=== PATIENT | female | born 1960 | race Caucasian/White ===

== ENCOUNTER 2023-01-08 11:02 | Emergency (ER) | payer OTHER, MEDICAID, SELFPAY ==
[2023-01-08] VITALS (28 sets, daily range): BP systolic 113–129; BP diastolic 56–74; PULSE 49–120; RESP 10–28; TEMP 36.8; O2SAT 92–97
--- NOTE | 2023-01-08 11:00 | DI.RAD_ITS ---
Exam(s) XR PORTABLE CHEST AP EXAM: XR PORTABLE CHEST AP CLINICAL HISTORY: Chest Pain. TECHNIQUE: 2D digital imaging was performed. COMPARISON: No exams were available for comparison FINDINGS: Single AP portable view. Unipolar left subclavian pacemaker noted. Lead tip is in right ventricle. Heart size is upper normal. The mediastinum is not widened. Lungs are clear. No infiltrates nor obvious pleural effusions. No pulmonary edema. IMPRESSION: No acute pulmonary findings on this single AP portable view of the chest. DATA REPOSITORY: RADIATION DOSE DELIVERED:
--- NOTE | 2023-01-08 11:00 | RT.EKG_ITS ---
APPROVED REPORT Exam: Resting ECG Reason for Exam: defib fired, palpitations Patient Location: E HR:78 bpm ECG Measurements Heart Rate 78 AXIS IA 180 P 29 QRSd 140 QRS -11 QT 472 T 61 QTc 496 Conclusion Sinus rhythm...normal P axis, V-rate 60- 99 IVCD, consider LBBB...QRSd>120, notch/slur R I aVL V5-6 I have reviewed and interpreted ECG and agree with software generated interpretation.
[2023-01-08 11:41] LABS: Abs Immature Grans 0.02 10^3/uL (0.0-0.06); Absolute Basophil Count 0.04 10^3/uL (0.0-0.2); Absolute Eosinophil Count 0.07 10^3/uL (0.0-0.7); Absolute Lymphocyte Count 2.08 10^3/uL (1.2-3.4); Absolute Monocyte Count 0.62 10^3/uL (0.1-0.8); Absolute Neutrophil Count 3.75 10^3/uL (1.2-6.7); Basophils % 0.6; Eosinophils % 1.1; HCT 46.7 % (36.0-46.0); HGB 15.3 g/dL (11.2-15.7); Immature Grans % 0.3; Lymphocytes % 31.6; MCH 29.9 pg (27.0-33.0); MCHC 32.8 % (32.0-36.0); MCV 91 fL (80-95); MPV 12.4 fL (8.0-11.0); Monocytes % 9.4; Platelet Count 208 10^3/uL (130-400); RBC 5.12 10^6/uL (3.93-5.22); RDW 13.3 % (11.7-14.6); RDW-SD 44.8 fL; WBC 6.58 10^3/uL (4.4-10.8)
--- NOTE | 2023-01-08 11:43 | ED.GENADUL_ITS ---
Discharge Plan Disposition Patient Disposition: Home Condition: Stable Discharge Details Clinical Impression: ICD (implantable cardioverter-defibrillator) discharge Primary Care Provider: Janey Rangel ED Provider: Malinda Mccormick Home Meds and New Rx's Prescriptions: Continued metformin 500 mg tablet 1,000 mg PO BID Patient Comments: take 2 tablets by mouth every morning and 2 tablets nightly atorvastatin 20 mg tablet 20 mg PO DAILY Patient Comments: take 1 tablet by mouth EVERY EVENING sotalol [Sotalol AF] 120 mg tablet 120 mg PO BID Patient Comments: take 1 tablet by mouth twice a day spironolactone 25 mg tablet 12.5 mg PO DAILY Patient Comments: take 1/2 tablet by mouth once daily bisoprolol fumarate 5 mg tablet 2.5 mg PO DAILY Patient Comments: take 1/2 tablet by mouth once daily potassium chloride 20 mEq tablet,ER particles/crystals 20 meq PO DAILY Patient Comments: take 1 tablet by mouth once daily furosemide 20 mg tablet 20 mg PO BID Patient Comments: take 1 tablet by mouth twice a day Jardiance 10 mg tablet 10 mg PO DAILY Patient Comments: take 1 tablet by mouth once daily Entresto 24-26 mg tablet 1 tab PO DAILY Patient Comments: take 1 tablet by mouth twice a day Discharge Instructions Instructions: Premature Ventricular Contractions (ED) Additional Instructions: The tooth grinder recommends that you increase your bisoprolol to 5 mg a day. Please follow-up with [facility] cardiology within the next week. Follow up with primary care provider in 3-5 days. Return to ED sooner if any worsening or concerns. Increase oral fluids. Referrals: Elijah Mcmahan MD [MD CONSULTING PHYSICIAN] - 1 week Medical Decision Making 62-year-old female presents to the ER with a chief complaint of feeling as if her defibrillator went off prior to arrival. Patient states that she had just gone down and up some stairs and where she felt her defibrillator go off she den ies any chest pain she does report some fatigue and did have some dizziness after the defibrillation. That has since resolved. She has had this defibrillator for approximately 3 years. She does have a history of CHF, high cholesterol, hypertension diabetes. Initially irregular rhythm with PVCs, pacemaker was interrogated by staff rn. Patient has no chest pain. Cardiac work-up ordered. [employer] interrogation report received did show an episode of V. tach which was defibrillated. CBC largely within normal limits, rest of the labs are pending at this time. Initial troponin slightly elevated at 87, CBC within normal limits, 1228: [facility] transfer center called to consult with cardiology. 1330: Spoke with Dr. Adhikari with [facility] cardiology I did discuss the patient case in details with him he recommends for the patient to take it easy make sure she is taking her bisoprolol and close follow-up with lathe tender and either Dr. Mcmahan or himself in the upcoming future to discuss possible ablation. No further recommendations were given. 1349: Spoke again with Dr. Adhikari who recommends an increase of the bisoprolol to 5 mg daily, will instruct patient. Repeat troponin has doubled it is now 165 proBNP is 835 I will notify [facility] cardiology of the repeat troponin. 1419: [facility] transfer center contacted. 1520: Spoke again with cardiology at [facility] regarding the elevated troponin of 165 verbalized understanding. This is most likely due to the defibrillator discharge however it is not completely certain patient does not have any ischemic type symptoms no chest pain no dizziness no shortness of breath while being here in the ER. She has been observed for over 4 hours. Patient will be discharged. I did instruct her to increase her bisoprolol to 5 mg daily. This text was generated using [employer] dictation system, please disregard any oddities of phrase or misspellings. Medical Records Medical records reviewed: Yes I reviewed the patient's medical records. HPI General Mode of arrival: EMS . Date/Time Provider Initiated Documentation: 01/08/23 11:07 . Limitations to Documentation: no limitations . Information obtained by: patient, EMS, RN notes reviewed and old records reviewed . HPI Narrative: 62-year-old female presents to the ER with a chief complaint of feeling as if her defibrillator went off prior to arrival. Patient states that she had just gone down and up some stairs and where she felt her defibrillator go off she denies any chest pain she does report some fatigue and did have some dizziness after the defibrillation. That has since resolved. She has had this defibrillator for approximately 3 years. She does have a history of CHF, high cholesterol, hypertension diabetes. Related Data Home Medications Medication Instructions Recorded Confirmed atorvastatin 20 mg tablet 20 mg PO DAILY 01/08/23 01/08/23 bisoprolol fumarate 5 mg tablet 2.5 mg PO DAILY 01/08/23 01/08/23 empagliflozin 10 mg tablet 10 mg PO DAILY 01/08/23 01/08/23 (Jardiance) furosemide 20 mg tablet 20 mg PO BID 01/08/23 01/08/23 metformin 500 mg tablet 1,000 mg PO BID 01/08/23 01/08/23 potassium chloride 20 mEq 20 meq PO DAILY 01/08/23 01/08/23 tablet,extended release(part/cryst) sacubitril 24 mg-valsartan 26 mg 1 tab PO DAILY 01/08/23 01/08/23 tablet (Entresto) sotalol 120 mg tablet (Sotalol AF) 120 mg PO BID 01/08/23 01/08/23 spironolactone 25 mg tablet 12.5 mg PO DAILY 01/08/23 01/08/23 Allergies Allergy/AdvReac Type Severity Reaction Status Date / Time adhesive tape AdvReac Unverified 01/08/23 11:20 General Stated Complaint: Arrhythmia MAICOL: 3 Review of Systems All systems reviewed & are unremarkable except as noted in HPI and below Cardiovascular Cardiovascular: Denies chest pain and Reports irregular heart rhythm PFSH All Active Problems (Updated 01/08/23 @ 15:12 by Malinda Mccormick NP) ICD (implantable cardioverter-defibrillator) discharge (Acute) Social History Smoking/Tobacco Use Status: Never Smoking risk assessment performed?: Yes Alcohol Intake: never Substance use type: does not use Exam Narrative Exam Narrative: Constitutional: Alert and oriented x3. Appears stated age. Normal body habitus. Head: Normocephalic, no trauma. Eyes: Pupils PERRL, Red reflex noted, EOM's intact. Eyelids symmetrical without lesions, discharge, or swelling. ENT: Bilateral TM's WNL, External ear normal to inspection, no mastoid TTP, swelling, or erythema, Nasal turbinates WNL, no nasal discharge. Normal dentition, Posterior pharynx WNL, no exudate. Chest: RRR, Normal S1, S2, distal pulses intact. Resp: Lungs clear to auscultation bilaterally, no wheezes, rales, or rhonchi. Abdomen: Soft, non-distended, Normoactive bowel sounds all 4 quads. Musculoskeletal: Normal gait, 5/5 strength to all four extremities. Skin: No suspicious rashes or lesions. Capillary refill less than 2 sec. Neurologic: Cranial nerves II-XII intact. Alert and oriented x 3. Motor: No deficits noted. Sensory: Intact bilaterally all 4 extremities. Reflexes: DTR's intact bilaterally.. Hematologic/Lymphatic: No ecchymosis, no lymphadenopathy. Course Vital Signs Vital signs: Vital Signs Temperature 36.8 C 01/08/23 11:24 Pulse 54 L 01/08/23 11:24 Respiratory Rate 18 01/08/23 11:24 Blood Pressure 129/58 L 01/08/23 11:24 Pulse Oximetry 94 01/08/23 11:24 Temperature 36.8 C 01/08/23 11:24 Temperature Source Oral 01/08/23 11:24 Pulse 54 L 01/08/23 11:24 Respiratory Rate 18 01/08/23 11:24 Respiratory Effort Normal, Non-Labored 01/08/23 11:19 Blood Pressure 129/58 L 01/08/23 11:24 Pulse Oximetry 94 01/08/23 11:24 Oxygen Delivery Method Room Air 01/08/23 11:24 Oxygen Flow Rate 0 01/08/23 11:24 Lab/Test Results Lab/Test Results: Laboratory Tests Range/Units 01/08/23 11:26 WBC (4.4-10.8) 10^3/uL 6.58 RBC (3.93-5.22) 10^6/uL 5.12 Hgb (11.2-15.7) g/dL 15.3 Hct (36.0-46.0) % 46.7 H MCV (80-95) fL 91 MCH (27.0-33.0) pg 29.9 MCHC (32.0-36.0) % 32.8 RDW (11.7-14.6) % 13.3 Plt Count (130-400) 10^3/uL 208 MPV (8.0-11.0) fL 12.4 H Immature Gran % 0.3 Neutrophils % 57.0 Lymphocytes % 31.6 Monocytes % 9.4 Eosinophils % 1.1 Basophils % 0.6 Nucleated RBC % (0.0-0.3) % 0.0 Absolute Neutrophils (1.2-6.7) 10^3/uL 3.75 Absolute Lymphocytes (1.2-3.4) 10^3/uL 2.08 Absolute Monocytes (0.1-0.8) 10^3/uL 0.62 Absolute Eosinophils (0.0-0.7) 10^3/uL 0.07 Absolute Basophils (0.0-0.2) 10^3/uL 0.04
[2023-01-08 12:02] LABS: ALT 36 U/L (14-59); AST 17 U/L (15-37); Albumin 4.6 g/dL (3.4-5.0); Alkaline Phosphatase 57 U/L (46-116); Anion Gap 13.3 mmol/L (3-11); BUN 17 mg/dL (7-18); CO2 21.7 mmol/L (21.0-32.0); CREATININE 0.9 mg/dL (0.55-1.02); Calcium 9.9 mg/dL (8.5-10.1); Chloride 106 mmol/L (98-107); Estimated GFR 71.39 (mL/min/1.73m2); Glucose 168 mg/dL (74-106); Magnesium 2.1 mg/dL (1.8-2.4); Potassium 4.3 mmol/L (3.5-5.1); Sodium 141 mmol/L (136-145); Total Protein 8.2 g/dL (6.4-8.2)
[2023-01-08 12:07] LABS: Troponin I 87 ng/L (<or=60)
--- NOTE | 2023-01-08 14:00 | RT.EKG_ITS ---
APPROVED REPORT Exam: Resting ECG Reason for Exam: chest pain Patient Location: E HR:72 bpm ECG Measurements Heart Rate 72 AXIS ND 184 P 8 QRSd 133 QRS -24 QT 460 T 53 QTc 483 Conclusion Sinus rhythm...normal P axis, V-rate 60- 99 Ventricular premature complex...V complex w/ short R-R interval Left bundle branch block...QRSd>120, broad/notched R I have reviewed and interpreted ECG and agree with software generated interpretation.
[2023-01-08 14:11] LABS: Troponin I 165 ng/L (<or=60)
[2023-01-08 14:12] LABS: NT-proBNP 835 pg/mL (<300)
== END 2023-01-08 15:40 | disposition home or self-care (01) ==
PROVIDERS: Emergency Provider Registered Nurse Emergency; PCP Nurse Practitioner Family
DX: T82.897A Other specified complication of cardiac prosthetic devices, implants and grafts, initial encounter (principal); R53.83 Other fatigue; R42 Dizziness and giddiness; I49.3 Ventricular premature depolarization; I11.0 Hypertensive heart disease with heart failure; I50.9 Heart failure, unspecified; E11.9 Type 2 diabetes mellitus without complications; R77.8 Other specified abnormalities of plasma proteins; Z79.84 Long term (current) use of oral hypoglycemic drugs; Y83.8 Other surgical procedures as the cause of abnormal reaction of the patient, or of later complication, without mention of misadventure at the time of the procedure
CPT/HCPCS: 80053; 93005; 99283; 71045; 83735; 83880; 84484; 85025; 93010

== ENCOUNTER 2023-02-10 09:26 | Emergency (ER) | payer OTHER, MEDICAID, SELFPAY ==
[2023-02-10] VITALS (24 sets, daily range): BP systolic 99–127; BP diastolic 57–78; PULSE 53–85; RESP 9–25; TEMP 36.9; O2SAT 94–97
--- NOTE | 2023-02-10 09:15 | RT.EKG_ITS ---
APPROVED REPORT Exam: Resting ECG Reason for Exam: CHEST PAIN Patient Location: E HR:71 bpm ECG Measurements Heart Rate 71 AXIS ND 194 P 46 QRSd 131 QRS -37 QT 472 T 22 QTc 490 Conclusion Sinus rhythm...normal P axis, V-rate 60- 99 Left bundle branch block...QRSd>120, broad/notched R Left bundle branch block pattern with left axis deviation and normal sinus rhythm at a rate of 72. N o signs of LVH based on voltage criteria. Not meeting Sgarbossa criteria. Multiple PVCs. Appears s imilar to prior dated last month. Not meeting Sgarbossa criteria nor modified Escobedo criteria for isc hemia.
--- NOTE | 2023-02-10 09:30 | DI.RAD_ITS ---
Exam(s) XR PORTABLE CHEST AP EXAM: XR PORTABLE CHEST AP CLINICAL HISTORY: Chest pain TECHNIQUE: 2D digital imaging was performed. COMPARISON: CR XR PORTABLE CHEST AP from 01/08/2023 FINDINGS: Pacemaker noted. LUNGS: Clear. No pleural abnormality seen. HEART: Normal size. AORTA: Normal diameter. BONES: Unremarkable for age. Soft tissues: Unremarkable. IMPRESSION: No acute findings. DATA REPOSITORY: RADIATION DOSE DELIVERED:
--- NOTE | 2023-02-10 09:31 | W.ED.GENAD ---
"Discharge Plan Disposition Patient Disposition: Home Discharge Details Clinical Impression: ICD (implantable cardioverter-defibrillator) in place, Lightheadedness, Wide-complex tachycardia Primary Care Provider: Janey Rangel ED Provider: Jamie Ledezma Home Meds and New Rx's Prescriptions: New sotalol 160 mg tablet 160 mg PO BID Qty: 60 0RF Continued metformin 500 mg tablet 1,000 mg PO BID Patient Comments: take 2 tablets by mouth every morning and 2 tablets nightly atorvastatin 20 mg tablet 20 mg PO DAILY Patient Comments: take 1 tablet by mouth EVERY EVENING spironolactone 25 mg tablet 12.5 mg PO DAILY Patient Comments: take 1/2 tablet by mouth once daily bisoprolol fumarate 5 mg tablet 2.5 mg PO DAILY Patient Comments: take 1/2 tablet by mouth once daily potassium chloride 20 mEq tablet,ER particles/crystals 20 meq PO DAILY Patient Comments: take 1 tablet by mouth once daily furosemide 20 mg tablet 20 mg PO BID Patient Comments: take 1 tablet by mouth twice a day Jardiance 10 mg tablet 10 mg PO DAILY Patient Comments: take 1 tablet by mouth once daily Entresto 24-26 mg tablet 1 tab PO DAILY Patient Comments: take 1 tablet by mouth twice a day Changed sotalol [Sotalol AF] 120 mg tablet 160 mg PO BID Qty: 0 0RF Patient Comments: take 1 tablet by mouth twice a day Discharge Instructions Additional Instructions: You were seen in the emergency department after your ICD shock. The electrophysiology team at [facility] advised increasing your sotalol dose up to 160 mg twice daily. If you develop chest pain or have another shock please return to the emergency department. Please call your electrophysiology team for follow-up next week. Your electrophysiology team will try to move up your ablation scheduled for this summer. Your blood work shows that your kidneys are working well. Discharge Data Discharge Date/Time-TO BE ENTERED AT DEPARTURE: 02/10/23 12:08 Medical Decision Making This is an overall well-appearing normothermic and not tachycardic 62-year-old female with a history of ischemic cardiomyopathy and [employer] ICD now status post shock concerning for recurrent VT despite sotalol therapy. Patient is not markedly fluid overloaded and has only had 1 pound of unintentional weight gain. Anticipate checking basic labs and touching base with electrophysiology at [facility]. Chart review [facility] indicates patient is scheduled for ablation this summer. Given her recurrent episode of ICD shock I am concerned for possibility of recurrent VT which was terminated. We will interrogate her pacemaker. We will check for any acute electrolyte abnormalities and correct these as needed. No persistent chest pain to suggest ACS. No cough to suggest pneumonia. No black nor bloody stools to suggest acute GI bleed. Will reassess following labs. 10:35 AM CBC lacks anemia and thrombocytopenia and leukocytosis. 10:55 AM I spoke with Marimar from [employer] who reviewed the pacemaker interrogation. Patient had rapid onset of a heart rate of 188 which was irregular and denies almost likely VTE. Pacemaker attempted to pace the patient twice and subsequently she received a 40 J shock. Cardiac troponin mildly elevated at 56 ng/L. Basic metabolic panel with mild anion gap but only mild hyperglycemia so doubt DKA based on normal bicarbonate. Calcium within normal limits. proBNP mildly elevated at 571 pg/mL but improved compared to prior. I obtained patient's verbal consent to have her ICD interrogated with the [employer] device connected to the [employer] network as unfortunately a secure connection was not available given recent upgrade to the [employer] network locally. I explained the risks of her permission being transmitted on securely. She understood these risks and consented to ICD interrogation over the unsecured Wi-Fi network. 1121am I spoke to Dr. Cabello from electrophysiology at [facility] she advised increasing sotol to 160 mg BID. She will speak with Dr. Mcmahan and asked him to try to move her ablation up. 12 PM I met with the patient and explained recommendation. I [facility] in [facility]. Chronic conditions affecting the care of the patient: Ischemic cardiomyopathy History obtained from an outside historian: Paramedics External record review: [facility] EMR Diagnostic interpretations performed by me: [Per my independent interpretation chest x-ray shows:] No obvious cardiopulmonary process [Per my independent interpretation EKG shows:] Left bundle branch block pattern with left axis deviation and normal sinus rhythm at a rate of 72. No signs of LVH based on voltage criteria. Not meeting Sgarbossa criteria. Multiple PVCs. Appears similar to prior dated last month. Not meeting Sgarbossa criteria nor modified Escobedo criteria for ischemia. Medications: N/A Social determinants of health affecting disposition: N/A Management discussed with: [facility] cards Treatment/interventions considered: no recurrent shocks in the ED Response to therapies provided: N/A HPI General Date/Time Provider Initiated Documentation: 02/10/23 09:31. HPI Narrative: This is a 62-year-old female arriving via EMS in the setting of a shock from her ICD. Patient reports that she was in her usual state of health earlier this morning. She said that while she was waiting for the elevator she felt lightheaded and then her internal defibrillator went off. She received only 1 shock. She denies any unintentional weight gain beyond 1 pound. She has been adherent with her home medications. She is on outpatient sotalol therapy 120 mg twice daily. She denies chest pain dysuria and frequency. She has had no cough nor any shortness of breath. She has taken no falls. She did not syncopized today nor hit her head. She denies abdominal pain dysuria and frequency. Related Data Home Medications Medication Instructions Recorded Confirmed atorvastatin 20 mg tablet 20 mg PO DAILY 01/08/23 01/08/23 bisoprolol fumarate 5 mg tablet 2.5 mg PO DAILY 01/08/23 01/08/23 empagliflozin 10 mg tablet 10 mg PO DAILY 01/08/23 01/08/23 (Jardiance) furosemide 20 mg tablet 20 mg PO BID 01/08/23 01/08/23 metformin 500 mg tablet 1,000 mg PO BID 01/08/23 01/08/23 potassium chloride 20 mEq 20 meq PO DAILY 01/08/23 01/08/23 tablet,extended release(part/cryst) sacubitril 24 mg-valsartan 26 mg 1 tab PO DAILY 01/08/23 01/08/23 tablet (Entresto) spironolactone 25 mg tablet 12.5 mg PO DAILY 01/08/23 01/08/23 sotalol 120 mg tablet (Sotalol AF) 160 mg PO BID #0 tabs 02/10/23 01/08/23 sotalol 160 mg tablet 160 mg PO BID #60 tabs 02/10/23 Previous Rx's Medication Instructions Recorded sotalol 120 mg tablet (Sotalol AF) 160 mg PO BID #0 tabs 02/10/23 sotalol 160 mg tablet 160 mg PO BID #60 tabs 02/10/23 Allergies Allergy/AdvReac Type Severity Reaction Status Date / Time adhesive tape AdvReac Unverified 01/08/23 11:20 General MAICOL: 3 PFSH All Active Problems (Updated 02/10/23 @ 11:49 by Jamie Ledezma MD) ICD (implantable cardioverter-defibrillator) in place (Acute) Lightheadedness (Acute) Wide-complex tachycardia (Acute) Social History Smoking/Tobacco Use Status: Never Smoking risk assessment performed?: Yes Alcohol Intake: never Substance use type: does not use Do you feel safe at home: Yes Do you feel safe in your relationship?: Yes Exam Narrative Exam Narrative: General: Well-appearing in no acute distress speaking in complete sentences. Head: Normocephalic, atraumatic. Eye: Pupils equal, round reactive to light. Extraocular eye movements intact. No conjunctival injection. No scleral icterus. Ear, nose, mouth, throat: Grossly normal inspection. Normal voice, handling secretions normally. Neck: Trachea midline. Cardiovascular: Well-perfused distal extremities. Regular rate and rhythm. No murmurs. Respiratory: Nonlabored respiration. Clear lungs bilaterally. Gastrointestinal: Nondistended abdomen. Musculoskeletal: No significant lower extremity pitting edema edema. Moving all 4 extremities spontaneously. Skin: Normal for age and race, grossly normal temperature and turgor. No acute rash. Neurologic: Alert and appropriate, no apparent acute deficits. Psychiatric: Mood and manner are appropriate. Grooming and personal hygiene are appropriate."
[2023-02-10 10:17] LABS: Abs Immature Grans 0.01 10^3/uL (0.0-0.06); Absolute Basophil Count 0.03 10^3/uL (0.0-0.2); Absolute Eosinophil Count 0.07 10^3/uL (0.0-0.7); Absolute Lymphocyte Count 1.58 10^3/uL (1.2-3.4); Absolute Monocyte Count 0.48 10^3/uL (0.1-0.8); Absolute Neutrophil Count 4.41 10^3/uL (1.2-6.7); Basophils % 0.5; Eosinophils % 1.1; HCT 46.7 % (36.0-46.0); HGB 15.2 g/dL (11.2-15.7); Immature Grans % 0.2; MCH 30.2 pg (27.0-33.0); MCHC 32.5 % (32.0-36.0); MCV 93 fL (80-95); MPV 12.1 fL (8.0-11.0); Monocytes % 7.3; Neutrophils % 66.9; Platelet Count 199 10^3/uL (130-400); RBC 5.04 10^6/uL (3.93-5.22); RDW 13.4 % (11.7-14.6); RDW-SD 45.3 fL; WBC 6.58 10^3/uL (4.4-10.8)
[2023-02-10 10:33] LABS: Anion Gap 11.4 mmol/L (3-11); BUN 19 mg/dL (7-18); CO2 24.6 mmol/L (21.0-32.0); CREATININE 0.8 mg/dL (0.55-1.02); Calcium 9.9 mg/dL (8.5-10.1); Chloride 106 mmol/L (98-107); Estimated GFR 82.23 (mL/min/1.73m2); Glucose 195 mg/dL (74-106); NT-proBNP 571 pg/mL (<300); Potassium 4.3 mmol/L (3.5-5.1); Sodium 142 mmol/L (136-145); Troponin I 56 ng/L (<or=60)
--- NOTE | 2023-02-10 10:55 | DI.VRAD_ITS ---
PROCEDURE INFORMATION: Exam: XR Chest Exam date and time: 02/10/2023 10:42 AM Age: 62 years old Clinical indication: Other: Chest pain; Prior surgery; Surgery date: 6+ months; Surgery type: Pace maker TECHNIQUE: Imaging protocol: Radiologic exam of the chest. Views: 1 view. COMPARISON: CR XR PORTABLE CHEST AP 01/08/2023 11:21 AM FINDINGS: Pacemaker/AICD lead is grossly stable Lungs: Unremarkable. No consolidation. Pleural spaces: Unremarkable. No pleural effusion. No pneumothorax. Heart/Mediastinum: Grossly stable. Bones/joints: Unremarkable. IMPRESSION: No acute findings. Dictated and Authenticated by: Louis Da Silva MD. Ordering:[id number] Ayala MD
[2023-02-10 11:16] LABS: Magnesium 2.3 mg/dL (1.8-2.4)
== END 2023-02-10 12:08 | disposition home or self-care (01) ==
PROVIDERS: Emergency Provider Emergency Medicine; PCP Nurse Practitioner Family
DX: R42 Dizziness and giddiness (principal); R00.0 Tachycardia, unspecified; Z95.810 Presence of automatic (implantable) cardiac defibrillator; R07.9 Chest pain, unspecified; I25.5 Ischemic cardiomyopathy; Z79.899 Other long term (current) drug therapy
CPT/HCPCS: 80048; 93005; 99284; 71045; 83735; 83880; 84484; 85025; 93010